=== PATIENT | male | born 1955 | race Caucasian/White ===

== ENCOUNTER 2017-11-21 00:11 | Day surgery (SDC) | payer OTHER ==
[~2017-11-21] VITALS: Ht 182.9 cm; Wt 96.2 kg
[~2017-11-21 00:11] MED LIST: ATOR20TA22 PO; ESOM40CA42 PO; GOLYTE PO; KET10 PO; PER PO
[2017-11-21 08:08] VITALS: BP 130/93
[2017-11-21] MEDS ORDERED: LIDOCAINE/SOD BICARB 8.4% SYR ID ONE (08:35)
[2017-11-21] MEDS ORDERED: NORMOSOL R SOLN(*) 1000 ML BAG 1,000 ML IV PRN (08:35)
[2017-11-21] MEDS ORDERED: MIDAZOLAM 2 MG/2 ML VIAL IVP PRN (08:35)
[2017-11-21] MEDS ORDERED: PROPOFOL EMUL(*) 10MG/ML 20 ML 20 ML ONE (10:04)
[2017-11-21 10:37] VITALS: BP 105/66
[2017-11-21 10:45] VITALS: BP 100/66
--- NOTE | 2017-11-21 10:45 | Short(Outpt) Discharge Summary ---
Discharge Summary Reason for Hosp/Final Diag: (1) Colon cancer screening Status: Chronic Hospital Course & Plan: EGD with biopsies and colonoscopy completed without problems. (2) Epigastric abdominal pain Status: Chronic (3) Nausea Status: Chronic Departure Discharge to: Home, Self Care Discharge Instructions Home Meds Active Scripts Peg/Electrolytes (GOLYTELY SOLUTION) 4,000 Ml Soln, 1 GAL PO ONCE, #1 GAL 0 Refills Prov:CLARIBEL ABBOTT MD 10/08/17 Esomeprazole Magnesium (NEXIUM) 40 Mg Capsule.dr, 1 CAP PO QDAY, #30 CAP 2 Refills Take 1 capsule every morning and wait 30 minutes before eating Prov:CLARIBEL ABBOTT MD 10/08/17 Reported Medications Atorvastatin Calcium (LIPITOR) 20 Mg Tablet, 1 TAB PO QDAY, TAB 11/15/17 Follow up Referrals: General Surgery - 12/07/17 @ Surgery, General with Claribel Abbott Md You have a follow up appointment scheduled with Dr. Abbott on 12/07/17, at 11:00am. Diet: Regular Activity: As Tolerated Special Instructions: Your upper endoscopy was normal, no ulcers or other abnormalities. My clinic nurse, Mylene, will call you in the next couple of days to schedule a gallbladder ultrasound to be done before your follow up appiontment with me. Your colonoscopy was completely normal and your prep was excellent (Good Job!!). I recommend that you have another colonoscopy in 10 years. CLARIBEL ABBOTT MD Nov 21, 2017 10:45
[2017-11-21 11:00] VITALS: BP 98/64
[2017-11-21 11:12] VITALS: BP 101/66
[2017-11-21 11:15] VITALS: BP 107/83
== END 2017-11-21 11:36 | disposition home or self-care (01) ==
LOC: OR 00:11
PROVIDERS: ATTEND Surgery
DX: Z12.11 Encounter for screening for malignant neoplasm of colon (principal)
CPT/HCPCS: 00812; 43239; 45378; 87077; 88305; J2704

== ENCOUNTER → 2017-11-29 | Outpatient (CLI) | payer OTHER ==
--- NOTE | 2017-11-29 11:27 | RADIOLOGY IMAGING REPORT ---
FACILITY: [facility] PATIENT NAME: Neeru Escalona : 1955 MR: [id number] V: [id number] EXAM DATE: ORDERING PHYSICIAN: CLARIBEL ABBOTT TECHNOLOGIST: Location: [facility] Patient: Neeru Escalona : 1955 Visit/Account:[id number] Date of Sevice: 11/29/2017 GALLBLADDER HISTORY: Right upper quadrant pain COMPARISON: None. FINDINGS: Gallbladder: Unremarkable; no stones or sludge. Liver: Negative. Common duct: Normal, 3.9 mm diameter. Pancreas: Partially obscured by bowel, visualized aspects unremarkable. Right kidney: Unremarkable as imaged measuring 9.9 cm in length Upper abdominal aorta and IVC: Patent. Ascites: None visualized. IMPRESSION: Unremarkable right upper quadrant ultrasound Report Dictated By: Elli Herrera MD at 11/29/2017 11:22 AM Report E-Signed By: Elli Herrera MD at 11/29/2017 11:23 AM WSN:[email or web address]
== END ==
LOC: US 00:45
PROVIDERS: ATTEND Surgery
DX: R11.0 Nausea (principal); R10.13 Epigastric pain
CPT/HCPCS: 76705

== ENCOUNTER → 2018-07-10 | Outpatient (REF) | payer OTHER | LOC: ZZSENDIN 13:16 | PROVIDERS: ATTEND Physician Assistant Medical | DX: R19.7 Diarrhea, unspecified (principal) | CPT/HCPCS: 83630; 87045 ==

== ENCOUNTER → 2018-10-24 | Outpatient (REF) | payer OTHER ==
[2018-10-24 09:11] LABS: LDL CHOLESTEROL 88 mg/dl
== END ==
LOC: ZZSENDIN 08:51
PROVIDERS: ATTEND Family Medicine
DX: E78.00 Pure hypercholesterolemia, unspecified (principal)
CPT/HCPCS: 82040; 82247; 82310; 82374; 82435; 82465; 82565; 82947; 83718; 84075; 84132; 84155; 84295; 84450; 84460; 84478; 84520